=== PATIENT | male | born 1965 | race Caucasian/White ===

== ENCOUNTER 2018-03-11 14:17 | Emergency (ER) | payer BC ==
[~2018-03-11] VITALS: Ht 180.3 cm; Wt 113.4 kg
[2018-03-11] MEDS ORDERED: LISINOPRIL20 MG PO (14:39)
[2018-03-11] MEDS ORDERED: CYCLOBENZAPRINE10 MG PO (14:39)
[2018-03-11] MEDS ORDERED: ZITHROMAX250 MG PO (14:45)
== END 2018-03-11 14:50 | disposition home or self-care (01) ==
LOC: ED 14:17
DX: J02.9 Acute pharyngitis, unspecified (principal); I10 Essential (primary) hypertension; Z79.899 Other long term (current) drug therapy
CPT/HCPCS: 99282